=== PATIENT | female | born 1990 | race Caucasian/White ===

== ENCOUNTER 2016-06-11 04:55 | Outpatient (CLI) | payer BC ==
[~2016-06-11] VITALS: Ht 170.2 cm; Wt 77.2 kg
[2016-06-11 05:14] VITALS: BP 127/86; PULSE 100; RESP 18; Ht 170.2 cm; Wt 77.2 kg
[2016-06-11] MEDS ORDERED: FOLI-49 PO (06:43)
[2016-06-11] MEDS ORDERED: FERR325T5 PO (06:43)
[2016-06-11] MEDS ORDERED: PREN1TAB79 PO (06:43)
[2016-06-11 06:59] LABS: ADD SCAN DIFF NO
[2016-06-11 07:11] LABS: BASOPHIL # 0.1 10^3/ul (0.0-0.1); BASOPHILS % 0.5 % (0.0-2.0); EOSINOPHILS # 0.3 10^3/ul (0.0-0.5); EOSINOPHILS % 3.2 % (0.0-7.0); HEMATOCRIT 37.4 % (37.0-47.0); HEMOGLOBIN 12.6 g/dl (12.0-16.0); LYMPHOCYTES # 2.5 10^3/ul (0.8-2.9); MEAN CORPUSCULAR HEMOGLOBIN 31.9 pg (29.0-33.0); MEAN CORPUSCULAR HGB CONC 33.7 g/dl (32.0-37.0); MEAN CORPUSCULAR VOLUME 94.7 fl (82.0-101.0); MEAN PLATELET VOLUME 9.9 fl (7.4-10.4); MONOCYTE # 0.7 10^3/ul (0.3-0.9); MONOCYTES % 7.2 % (0.0-11.0); NEUTROPHIL # 6.3 10^3/ul (1.6-7.5); NEUTROPHILS % 62.8 % (39.0-77.0); PLATELET COUNT 243 10^3/UL (140-415); RED BLOOD COUNT 3.95 10^6/ul (4.20-5.40); RED CELL DISTRIBUTION WIDTH 13.6 % (11.5-14.5)
--- NOTE | 2016-06-11 07:36 | RADRPT ---
PROCEDURE: US OB. CLINICAL INDICATION: Vaginal bleeding Twins. TECHNIQUE: Multiple sonographic images of the pelvis were obtained. Transabdominal imaging only w as performed. The images were reviewed on a PACS workstation. COMPARISON: No prior studies are available for comparison. FINDINGS: There is a twin intrauterine gestation. The cervix is closed with a length of 3.6 cm. Twin A: Cardiac activity is present with 156 beats per minute. position is cephalic. Twin B: Cardiac activity is present with 161 beats per minute. position is transverse with head to the maternal left. The placenta is posterior. IMPRESSION: 1. Twin live intrauterine gestation. 2. The cervix is closed with a length of 3.6 cm. RPTAT: HH .Tammy Becker MD, Date Time Electronically viewed and signed by .Tammy Becker MD, on 06/11/2016 07:35 .G/
[2016-06-11 08:01] LABS: ADD UMIC YES; UR BILIRUBIN (Dip) NEGATIVE (NEGATIVE); UR BLOOD (Dip) 3+ (NEGATIVE); UR CLARITY CLEAR (CLEAR); UR COLOR LT. YELLOW (YELLOW); UR GLUCOSE (Dip) NEGATIVE (NEGATIVE); UR KETONES (Dip) NEGATIVE (NEGATIVE); UR LEUKOCYTE ESTERASE (Dip) NEGATIVE (NEGATIVE); UR NITRITE (Dip) NEGATIVE (NEGATIVE); UR TOTAL PROTEIN (Dip) NEGATIVE (NEGATIVE); UR UROBILINOGEN (Dip) 0.2 E.U./dL (0.1-1.0)
[2016-06-11 08:23] LABS: UR BACTERIA RARE; URINE RBCS 0-2 /HPF (0)
--- NOTE | 2016-06-11 09:12 | PN ---
Date/Time of Note Date/Time of Note DATE: 06/11/16 TIME: 09:08 OB Subjective Subjective Subjective Patient is 1 para 0 twin gestation at 26.2 weeks of gestation She presents with an episode of vaginal bleeding which is light red in color She reports she had intercourse 3 days ago She has no complaints of contractions or leaking fluid She reports positive movement She reports no issues or concerns during this care OB Objective Objective Objective Cervical length 3.6 cm OB ultrasound indicating placenta is posterior HEENT: WNL Heart: Rhythm Normal Lungs: Clear Abdomen: WNL Extremities: Normal Cervical Dilatation: None Membranes: Intact Accelerations: Accelerations Present Decelerations: No Decelerations Varibility: Moderate Contractions on Admission: None OB Assessment/Plan Other Assessment: Twin gestation at 26+2 weeks of gestation NST reactive [place] none Other plan: Patient was counseled regarding her OB ultrasound results She was further counseled to follow-up with her OB doctor in 1-2 days She should return to labor and delivery if vaginal bleeding persist or if she has contractions or leaking fluid or no movement LAINA RIVERA MD Jun 11, 2016 09:12
== END 2016-06-11 09:15 | disposition home or self-care (01) ==
LOC: L-D 04:55 → OBT 04:55
PROVIDERS: ATTEND Obstetrics & Gynecology
DX: O46.8X2 Other antepartum hemorrhage, second trimester (principal); Z3A.26 26 weeks gestation of pregnancy
CPT/HCPCS: 76817; 81001; 85025; 86850; 86900; 86901; Z7500; 81003; G0463

== ENCOUNTER 2016-08-06 11:51 | Inpatient (IN) | payer BC ==
[~2016-08-06] VITALS: Ht 170.2 cm; Wt 83.5 kg
[~2016-08-06 11:51] MED LIST: FERR325T5 PO; FOLI-49 PO; PREN1TAB79 PO
[2016-08-06 12:14] VITALS: Ht 170.2 cm; Wt 83.5 kg
--- NOTE | 2016-08-06 13:45 | TRIAGE ---
OB Triage Datetime Report Generated by CPN: 08/06/2016 13:45 Datetime: 08/06/2016 13:37 Vaginal Exam Dilatation (cms): 2.0 Effacement (%): 90 Station: -1 Datetime: 08/06/2016 12:18 Stage of : OB Triage Assessment Type: Triage Maternal Assessment Level of Consciousness: Fully Conscious DTR's/Clonus: DTRs 2+; No Clonus Headache: Denies Blurred Vision: No Respiratory Effort: Unlabored; Regular Rhythm; Equal Expansion Breath Sounds, Left: Clear and Equal Breath Sounds, Right: Clear and Equal Nausea/Vomiting: Denies RUQ Epigastric Pain: Denies Lower Extremities Edema: Bilateral Lower Extremities Degree: 1+ Upper Extremities Edema: None Degree: None Facial Edema: None Temperature Route: Oral Fall Risk Assessment History of Falling: (0) No Secondary Diagnosis: (0) No Ambulatory Aid: (0) Bedrest/Nurse Assist IV Therapy: (0) No Gait: (0) Normal/Bedrest/Immobile Mental Status: (0) Oriented to Own Ability Fall Score: 0 Fall Risk Score Definition: No Risk: No action required Labor Evaluation Frequency: 0 Monitor Mode: External Pain Presence: None/Denies Datetime: 08/06/2016 11:45 Time of Arrival: 08/06/2016 11:45 EGA: 34.2 Arrived By: Ambulatory Arrived From: Other Unit in Hospital Chief Complaint: UC'S Movement: Present Contractions: Occasional Rupture of Membranes: Denies Vaginal Bleeding: None Vaginal Discharge: Denies Recent Sexual Intercouse: Denies Abdominal Trauma: Not Applicable Patient Complaints: Contractions Time Provider Notified: 08/06/2016 13:40 Provider Notified: DELSHAD Initial Plan: IV HYDRATION AND VE Datetime: 06/11/2016 09:13 Vaginal Bleeding: None Vaginal Discharge: Denies Recent Sexual Intercouse: Denies Datetime: 06/11/2016 08:59 Stage of : OB Triage Datetime: 06/11/2016 08:43 Monitor Mode: External Resting Tone [place]: Relaxed Heart Rate FHR Baseline Rate: 145 Monitor Mode: External US Variability: Moderate 6-25 bpm Decelerations: None Category: Category I Pain Assessment Pain Scale: 0 Pain Presence: None/Denies Pain Type: N/A Pain Location: Abdomen Pain Goal: 3 Pain Relief Measures: Comfort Measures Datetime: 06/11/2016 08:29 Stage of : OB Triage Datetime: 06/11/2016 07:45 Labor Evaluation Frequency: 0 Monitor Mode: External Resting Tone [place]: Relaxed Heart Rate FHR Baseline Rate: 135 Monitor Mode: External US Variability: Moderate 6-25 bpm Decelerations: None Category: Category I Pain Assessment Pain Scale: 0 Pain Presence: None/Denies Pain Type: N/A Pain Goal: 3 Pain Relief Measures: Comfort Measures Datetime: 06/11/2016 07:09 Labor Evaluation Frequency: None Monitor Mode: External Pattern: Normal: <= 5 Contractions in 10 Minutes Resting Tone [place]: Relaxed Heart Rate FHR Baseline Rate: 140 Monitor Mode: External US Variability: Moderate 6-25 bpm Accelerations: 15X15 Decelerations: Variable Category: Category II Comments: Appropriate for gestational age. Datetime: 06/11/2016 06:36 Stage of : OB Triage Datetime: 06/11/2016 06:20 Labor Evaluation Frequency: x1 Monitor Mode: External Duration (sec)2399: 40 Pattern: Normal: <= 5 Contractions in 10 Minutes Resting Tone [place]: Relaxed Heart Rate FHR Baseline Rate: 145 Monitor Mode: External US Variability: Moderate 6-25 bpm Accelerations: 15X15 Decelerations: Variable Category: Category II Comments: Appropriate for gestational age. Pain Assessment Pain Scale: 0 Pain Presence: None/Denies Pain Type: N/A Pain Goal: 0 Pain Relief Measures: Comfort Measures Datetime: 06/11/2016 05:40 Stage of : OB Triage Datetime: 06/11/2016 05:35 Stage of : OB Triage Datetime: 06/11/2016 05:20 Stage of : OB Triage Assessment Type: Admission Assessment Maternal Assessment Level of Consciousness: Fully Conscious DTR's/Clonus: DTRs 2+; No Clonus Headache: Denies Blurred Vision: No Respiratory Effort: Unlabored; Regular Rhythm; Equal Expansion Breath Sounds, Left: Clear and Equal Breath Sounds, Right: Clear and Equal Nausea/Vomiting: Denies RUQ Epigastric Pain: Denies Lower Extremities Edema: None Degree: None Upper Extremities Edema: None Degree: None Facial Edema: None Temperature Route: Oral Fall Risk Assessment History of Falling: (0) No Secondary Diagnosis: (0) No Ambulatory Aid: (0) Bedrest/Nurse Assist IV Therapy: (0) No Gait: (0) Normal/Bedrest/Immobile Mental Status: (0) Oriented to Own Ability Fall Score: 0 Fall Risk Score Definition: No Risk: No action required Labor Evaluation Frequency: NONE Monitor Mode: External Heart Rate FHR Baseline Rate: 150 Monitor Mode: External US Variability: Moderate 6-25 bpm Accelerations: 10X10 Decelerations: Variable Category: Category II Comments: Appropriate for gestational age. Pain Assessment Pain Scale: 0 Pain Presence: None/Denies Pain Type: N/A Pain Goal: 0 Pain Relief Measures: Comfort Measures Datetime: 06/11/2016 05:17 EGA: 26.2 Datetime: 06/11/2016 05:16 Time of Arrival: 06/11/2016 04:50 Arrived By: Wheelchair Arrived From: Emergency Dept Chief Complaint: BLEEDING Movement: Present Contractions: Denies/Absent Rupture of Membranes: Denies Vaginal Bleeding: Scant Vaginal Discharge: Denies Recent Sexual Intercouse: Denies Abdominal Trauma: Not Applicable Patient Complaints: Other Time Provider Notified: 06/11/2016 05:40 Provider Notified: Delshad Initial Plan: CARMEN, NALINI, notify
[2016-08-06] MEDS ORDERED: LACTATED RINGER'S 1,000 ML IV SCH (13:49)
[2016-08-06] MEDS ORDERED: MISOPROSTOL 200 MCG TAB PR PRN ×2 (14:00→23:30)
[2016-08-06] MEDS ORDERED: OXYTOCIN 30 UNITS/LR 500 ML IV PRN ×2 (14:00→23:30)
[2016-08-06] MEDS ORDERED: OXYTOCIN 30 UNITS/LR 500 ML IV SCH (14:00)
[2016-08-06] MEDS ORDERED: CEFAZOLIN 2 GM/50 ML (PMX) 50 ML IV SCH (14:00)
[2016-08-06] MEDS ORDERED: CARBOPROST 250 MCG INJ IM PRN ×2 (14:00→23:30)
[2016-08-06] MEDS ORDERED: METHYLERGONOVINE 0.2 MG INJ IM PRN ×2 (14:00→23:30)
[2016-08-06 15:23] LABS: ADD SCAN DIFF NO
[2016-08-06 15:46] LABS: INR 0.98
[2016-08-06 15:47] LABS: PARTIAL THROMBOPLASTIN TIME 27.9 Sec (25.0-35.0)
[2016-08-06 15:48] VITALS: BP 122/77; PULSE 81; RESP 18
[2016-08-06 15:49] LABS: BASOPHILS % 0.3 % (0.0-2.0); EOSINOPHILS # 0.1 10^3/ul (0.0-0.5); EOSINOPHILS % 1.2 % (0.0-7.0); HEMATOCRIT 36.4 % (37.0-47.0); HEMOGLOBIN 12.2 g/dl (12.0-16.0); LYMPHOCYTES # 2.6 10^3/ul (0.8-2.9); LYMPHOCYTES % 25.9 % (15.0-51.0); MEAN CORPUSCULAR HEMOGLOBIN 30.5 pg (29.0-33.0); MEAN CORPUSCULAR HGB CONC 33.5 g/dl (32.0-37.0); MONOCYTE # 0.7 10^3/ul (0.3-0.9); NEUTROPHIL # 6.5 10^3/ul (1.6-7.5); NEUTROPHILS % 64.5 % (39.0-77.0); PLATELET COUNT 166 10^3/UL (140-415); RED CELL DISTRIBUTION WIDTH 13.6 % (11.5-14.5); WHITE BLOOD COUNT 10.1 10^3/ul (4.8-10.8)
[2016-08-06] MEDS ORDERED: LACTATED RINGER'S 1,000 ML IV ONE (17:00)
[2016-08-06] MEDS ORDERED: morphine SULFATE/PF (10 MG/10 ML) INJ ONE (18:50)
[2016-08-06] MEDS ORDERED: FENTAnyl 50 MCG/ML VIAL ONE (19:26)
[2016-08-06] MEDS ORDERED: OXYTOCIN 30 UNITS/LR 500 ML IV ONE (19:51)
[2016-08-06] MEDS ORDERED: PROPOFOL 20 ML ONE (19:51)
--- NOTE | 2016-08-06 19:53 | HP ---
DATE OF ADMISSION: 08/06/2016 HISTORY OF PRESENT ILLNESS: A 26-year-old female 1, para 0, estimated date of delivery 08/19 at 34 weeks and 2 days presented with labor contractions. course significant with m onochorionic diamniotic twins. ALLERGIES: NO KNOWN ALLERGIES. FAMILY HISTORY: Noncontributory. PHYSICAL EXAMINATION: VITAL SIGNS: The patient is afebrile. Vital signs stable. HEAD, NECK, AND CHEST: Within normal limits. ABDOMEN: Soft, nontender, and gravid. EXTREMITIES: Within normal limits. NEUROLOGIC: Within normal limits. PELVIC: On external monitoring, contractions are noted. On pelvic exam, cervix is 2 cm dilated. IMPRESSION: Intrauterine at 34 weeks and 2 days with monochorionic diamniotic twins, in l abor. PLAN: Delivery by primary section. Risks, benefits, and alternatives of the procedure wer e explained to the patient. The patient said she understood and gave informed consent for the proce dure. Dictated By: JENNIFER TRINIDAD/SAMMI Conf#: [id number] DID#: [id number]
[2016-08-06] MEDS ORDERED: KETOROLAC 30 MG INJ ONE (19:55)
--- NOTE | 2016-08-06 19:58 | NSTRPT ---
NST Information Datetime Report Generated by CPN: 08/06/2016 19:58 Datetime: 08/06/2016 09:30 NST Information EGA: 34.2 Test Number: 4 Time on Monitor: 08/06/2016 09:48 Time off Monitor: 08/06/2016 10:54 NST Duration (Min): 66 Reason for NST: Multiple Gestation; Other Reason for NST Other: Twins Test and Monitor Explained: Monitor Explained; Test Explained; Verbalized Understanding Pulse: 83 Resp: 17 SBP: 115 DBP: 73 Test Evaluation NST Interventions: Reposition Patient Patient States Movement: Present Contraction Frequency: Q3-12min FHR Baseline : 130 Variability: Moderate 6-25bpm Accelerations: 15X15 Decelerations: None FHR Category: Category I NST Results: Reactive Comments: To u/s: Twin A-MVP 5.3cm, cephalic left Twin B-MVP 4.6cm, cephalic right Dr. Ramirez called and informed of moderate contractions q3-12min. Orders received to send pt to OB Triage now for IV hydration LR 1000ml at 125mL/hr and SVE. POC explained to pt, pt verbalizes und erstanding. 1140-Pt to Triage, accomp by Mitzy u/s NST Baby B Patient States Movement: Present FHR Baseline: 135 Variability: Moderate 6-25bpm Accelerations: 15X15 Decelerations: None FHR Category: Category I NST Results: Reactive Electronically Signed By E-Signature: with User ID: [id number] Datetime: 08/03/2016 09:56 NST Information EGA: 33.6 NST Duration (Min): 37 Datetime: 07/31/2016 09:21 NST Information EGA: 33.3 NST Duration (Min): 28 Datetime: 07/23/2016 13:15 NST Information EGA: 32.2 NST Duration (Min): 42
[2016-08-06] MEDS ORDERED: MEPERIDINE 25 MG INJ IV PRN (20:30)
[2016-08-06] MEDS ORDERED: NALOXONE (0.4 MG/ML) INJ IV PRN (20:30)
[2016-08-06] MEDS ORDERED: METOCLOPRAMIDE 10 MG INJ IV PRN (20:30)
[2016-08-06] MEDS ORDERED: HYDROmorphONE (0.2 MG/ML) 10ML SYG IV PRN ×3 (20:30)
[2016-08-06] MEDS ORDERED: HYDROmorphONE 1 MG/ML SYG IV PRN ×2 (20:30)
[2016-08-06] MEDS ORDERED: ONDANSETRON 4 MG INJ IV PRN ×2 (20:30)
[2016-08-06] MEDS ORDERED: DIPHENHYDRAMINE 50 MG INJ IV PRN ×2 (20:30)
[2016-08-06] MEDS: KETOROLAC 30 MG INJ IV PRN (21:22)
--- NOTE | 2016-08-06 22:53 | OPR ---
DATE OF OPERATION: 08/06/2016 PREOPERATIVE DIAGNOSES: at 34 weeks and 2 days with twins in labor. POSTOPERATIVE DIAGNOSES: at 34 weeks and 2 days with twins in labor. OPERATION PERFORMED: Primary low transverse section. SURGEON: Jennifer Kurtz MD COTTAGE CHEESE MAKER: Veronica Han MD ANESTHESIA: Spinal. ANESTHESIOLOGIST: PROCEDURE: The patient was taken to the operating room and placed on the operating table. After successful spinal anesthesia was given, the patient was placed in supine position. The area was prepared and draped in the usual sterile fashion. Spinal anesthesia was tested and was satisfactory. Using a scalpel, Pfannenstiel incision was made about 2 fingerbreadths above the symphysis pubis. The incision was carried down to the fascia. The fascia was incised and extended bilaterally with Andrew scissors. Two Kochers were used to separate the fascia from the muscle. The muscle was dissected in midline down to peritoneum. The peritoneum was bluntly entered. Using a scalpel, a small transverse incision was made on the lower segment of uterus. Upon entering the uterine cavity, bandage scissors were inserted to extend the incision bilaterally, curved up. Twin A, baby girl, was delivered from cephalic presentation. After suctioning clear of amniotic fluid, the baby was handed off to the shook machine operator in attendance. Apgars were 8 and 9. Twin B, baby girl , was delivered from cephalic position. After suctioning clear of amniotic fluid, the baby was handed off to the team in attendance. Apgars were 8 and 9. The placenta was delivered without difficulty. The uterus was closed with #1 Monocryl continuous locked after assuring hemostasis. Both ovaries and tubes were inspected, all looked normal. The peritoneal cavity was irrigated with warm saline. The peritoneum was closed with 2-0 Vicryl continuous. The fascia was closed with #1 Vicryl continuous in 2 segments. Subcutaneous tissue was reapproximated with 2-0 plain. The skin was closed with gabby. ESTIMATED BLOOD LOSS: 700 mL. COMPLICATIONS: None. COUNTS: All counts were correct. Dictated By: JENNIFER KURTZ MD GD/NTS Conf#: [id number] DID#: [id number] [facility]
[2016-08-06] MEDS ORDERED: LANOLIN 7 GM TUBE TOP PRN (23:30)
[2016-08-06] MEDS ORDERED: OXYCODONE/ACETAMINOPHEN (5/325) TAB PO PRN ×2 (23:30)
[2016-08-06 23:50] VITALS: BP 130/79; PULSE 84; RESP 18
[2016-08-07] VITALS (35 sets, daily range): BP systolic 104–157; BP diastolic 68–98; PULSE 80–133; RESP 11–21
[2016-08-07] MEDS: OXYTOCIN 30 UNITS/LR 500 ML IV SCH ×2 (01:33→03:23)
[2016-08-07] MEDS: LACTATED RINGER'S 1,000 ML IV SCH ×5 (06:11→16:46)
[2016-08-07] MEDS: KETOROLAC 30 MG INJ IV PRN ×2 (06:11→13:04)
[2016-08-07 07:58] LABS: ADD SCAN DIFF NO
[2016-08-07 08:01] LABS: BASOPHIL # 0.1 10^3/ul (0.0-0.1); BASOPHILS % 0.5 % (0.0-2.0); EOSINOPHILS # 0.1 10^3/ul (0.0-0.5); EOSINOPHILS % 0.5 % (0.0-7.0); HEMATOCRIT 31.4 % (37.0-47.0); HEMOGLOBIN 10.2 g/dl (12.0-16.0); LYMPHOCYTES # 2.2 10^3/ul (0.8-2.9); LYMPHOCYTES % 19.7 % (15.0-51.0); MEAN CORPUSCULAR HEMOGLOBIN 29.9 pg (29.0-33.0); MEAN CORPUSCULAR HGB CONC 32.5 g/dl (32.0-37.0); MEAN CORPUSCULAR VOLUME 92.1 fl (82.0-101.0); MEAN PLATELET VOLUME 10.7 fl (7.4-10.4); MONOCYTE # 0.8 10^3/ul (0.3-0.9); MONOCYTES % 6.8 % (0.0-11.0); PLATELET COUNT 176 10^3/UL (140-415); RED BLOOD COUNT 3.41 10^6/ul (4.20-5.40); RED CELL DISTRIBUTION WIDTH 13.7 % (11.5-14.5); WHITE BLOOD COUNT 11.2 10^3/ul (4.8-10.8)
[2016-08-07] MEDS ORDERED: SENNA/DOCUSATE NA (8.6MG/50MG) TAB PO SCH (09:00)
[2016-08-07] MEDS: HYDROmorphONE 1 MG/ML SYG IV PRN ×2 (09:11→16:41)
[2016-08-07 15:08] LABS: ADD SCAN DIFF NO
[2016-08-07 16:20] LABS: BASOPHILS % 0.3 % (0.0-2.0); EOSINOPHILS % 0.2 % (0.0-7.0); HEMATOCRIT 23.7 % (37.0-47.0); HEMOGLOBIN 7.8 g/dl (12.0-16.0); LYMPHOCYTES # 2.4 10^3/ul (0.8-2.9); LYMPHOCYTES % 18.8 % (15.0-51.0); MEAN CORPUSCULAR HEMOGLOBIN 30.6 pg (29.0-33.0); MEAN CORPUSCULAR HGB CONC 32.9 g/dl (32.0-37.0); MEAN CORPUSCULAR VOLUME 92.9 fl (82.0-101.0); MEAN PLATELET VOLUME 11.2 fl (7.4-10.4); MONOCYTE # 0.7 10^3/ul (0.3-0.9); MONOCYTES % 5.2 % (0.0-11.0); NEUTROPHIL # 9.6 10^3/ul (1.6-7.5); PLATELET COUNT 198 10^3/UL (140-415); RED BLOOD COUNT 2.55 10^6/ul (4.20-5.40); RED CELL DISTRIBUTION WIDTH 13.8 % (11.5-14.5); WHITE BLOOD COUNT 12.8 10^3/ul (4.8-10.8)
[2016-08-07] MEDS ORDERED: ETOMIDATE 20 MG INJ ONE (17:36)
[2016-08-07] MEDS ORDERED: SUCCINYLCHOLINE CHLORIDE 100 MG/5 ML SYG IV ONE (17:36)
[2016-08-07] MEDS ORDERED: MIDAZOLAM 1 MG/ML 2 ML INJ ONE (17:37)
[2016-08-07] MEDS ORDERED: FENTAnyl 50 MCG/ML VIAL ONE (17:37)
[2016-08-07] MEDS ORDERED: PHENYLephrine (100 MCG/ML) 5ML SYG ONE (17:39)
[2016-08-07] MEDS ORDERED: ALBUMIN HUMAN 5% 250 ML IV PRN (18:00)
[2016-08-07] MEDS ORDERED: FENTAnyl 50 MCG/ML VIAL IV PRN (18:00)
[2016-08-07] MEDS ORDERED: EPHEDrine SULFATE 50 MG/5 ML SYG IV PRN (18:00)
[2016-08-07] MEDS ORDERED: HYDROmorphONE (0.2 MG/ML) 10ML SYG IV PRN ×2 (18:00)
[2016-08-07] MEDS ORDERED: OXYCODONE/ACETAMINOPHEN (5/325) TAB PO PRN ×2 (18:00→20:00)
[2016-08-07] MEDS ORDERED: PROCHLORPERAZINE 10 MG INJ IV PRN (18:00)
[2016-08-07] MEDS ORDERED: ONDANSETRON 4 MG INJ IV PRN (18:00)
[2016-08-07] MEDS ORDERED: MEPERIDINE 25 MG INJ IV PRN (18:00)
[2016-08-07] MEDS ORDERED: DIPHENHYDRAMINE 50 MG INJ IV PRN (18:00)
--- NOTE | 2016-08-07 18:02 | QN ---
Documentation Comment Patient was noted to have decreased urine output since 11:30 am and patient's abdomen was noted to be distended. IV bolus was given but urine output did not improve. Repeat CBC revealed Hgb down to 7.8. Patient's HR was noted to be increasing to 130's. Patient was counseled and informed consent obtained. RBC transfusion started. Will transfer to OR for exploratory laparotomy. JENNIFER KURTZ MD Aug 07, 2016 18:02
[2016-08-07] MEDS ORDERED: ROCURONIUM 50 MG INJ ONE (18:08)
[2016-08-07] MEDS ORDERED: METOCLOPRAMIDE 10 MG INJ ONE (18:11)
[2016-08-07] MEDS ORDERED: ONDANSETRON 4 MG INJ ONE (18:11)
[2016-08-07] MEDS ORDERED: FAMOTIDINE 20 MG INJ ONE (18:11)
[2016-08-07] MEDS ORDERED: DEXAMETHASONE 4 MG/ML 1 ML INJ ONE (18:11)
[2016-08-07] MEDS ORDERED: HYDROmorphONE 2 MG/ML SYG ONE (18:50)
[2016-08-07] MEDS ORDERED: CA CHLORIDE 10% 10 ML SYRINGE ONE (18:59)
[2016-08-07] MEDS ORDERED: THROMBIN 5000 UNIT VIAL ONE (19:09)
[2016-08-07] MEDS ORDERED: NEOSTIGMINE 3 MG/3 ML SYRINGE ONE (19:26)
[2016-08-07] MEDS ORDERED: GLYCOPYRROLATE 0.4 MG INJ ONE (19:26)
[2016-08-07] MEDS ORDERED: LACTATED RINGER'S 1,000 ML IV SCH (19:41)
[2016-08-07] MEDS ORDERED: MISOPROSTOL 200 MCG TAB PR PRN (20:00)
[2016-08-07] MEDS ORDERED: OXYTOCIN 30 UNITS/LR 500 ML IV PRN (20:00)
[2016-08-07] MEDS ORDERED: CARBOPROST 250 MCG INJ IM PRN (20:00)
[2016-08-07] MEDS ORDERED: METHYLERGONOVINE 0.2 MG INJ IM PRN (20:00)
[2016-08-07] MEDS ORDERED: LANOLIN 7 GM TUBE TOP PRN (20:00)
[2016-08-07 20:50] LABS: ADD SCAN DIFF NO
[2016-08-07 20:52] LABS: BASOPHILS % 0.2 % (0.0-2.0); EOSINOPHILS % 0.1 % (0.0-7.0); HEMATOCRIT 28.8 % (37.0-47.0); HEMOGLOBIN 9.8 g/dl (12.0-16.0); LYMPHOCYTES # 1.5 10^3/ul (0.8-2.9); LYMPHOCYTES % 12.5 % (15.0-51.0); MEAN CORPUSCULAR HEMOGLOBIN 31.3 pg (29.0-33.0); MEAN PLATELET VOLUME 10.4 fl (7.4-10.4); MONOCYTE # 0.6 10^3/ul (0.3-0.9); MONOCYTES % 4.9 % (0.0-11.0); NEUTROPHIL # 9.9 10^3/ul (1.6-7.5); NEUTROPHILS % 81.5 % (39.0-77.0); PLATELET COUNT 152 10^3/UL (140-415); RED BLOOD COUNT 3.13 10^6/ul (4.20-5.40); RED CELL DISTRIBUTION WIDTH 13.8 % (11.5-14.5); WHITE BLOOD COUNT 12.1 10^3/ul (4.8-10.8)
--- NOTE | 2016-08-07 20:59 | PN ---
Date/Time of Note Date/Time of Note DATE: 08/07/16 TIME: 20:56 Assessment/Plan VTE Prophylaxis VTE Prophylaxis Intervention: ambulation, anti-embolic stocking Lines/Catheters IV Catheter Type (from Nrsg): Peripheral IV Subjective 24 Hr Interval Summary Free Text/Dictation Anesthesia note: A 26 year female pod # 1 with spinal duramorph is doimg fine. pain is controlled , no n/v, itching, headache, back pain. back is clean. Exam/Review of Systems Vital Signs Vitals Vital Signs Date Time Temp Pulse Resp B/P Pulse Ox O2 Delivery O2 Flow Rate FiO2 08/07/16 20:21 100 17 144/95 97 Nasal Cannula 3.0 08/07/16 19:50 97.8 Intake and Output 08/06/16 08/06/16 08/07/16 15:00 23:00 07:00 Intake Total 1650 ml 850 ml Output Total 3000 ml 400 ml Balance -1350 ml 450 ml Results Result Diagram: 08/07/16 1440 Results 24 hrs Laboratory Tests Test 08/07/16 07:35 08/07/16 14:40 White Blood Count 11.2 H 12.8 H Red Blood Count 3.41 L 2.55 #L Hemoglobin 10.2 L 7.8 #L Hematocrit 31.4 L 23.7 #L Mean Corpuscular Volume 92.1 92.9 Mean Corpuscular Hemoglobin 29.9 30.6 Mean Corpuscular Hemoglobin Concent 32.5 32.9 Red Cell Distribution Width 13.7 13.8 Platelet Count 176 198 Mean Platelet Volume 10.7 H 11.2 H Neutrophils % 72.0 75.0 Lymphocytes % 19.7 18.8 Monocytes % 6.8 5.2 Eosinophils % 0.5 0.2 Basophils % 0.5 0.3 Nucleated Red Blood Cells % 0.0 0.0 Neutrophils # 8.0 H 9.6 H Lymphocytes # 2.2 2.4 Monocytes # 0.8 0.7 Eosinophils # 0.1 0.0 Basophils # 0.1 0.0 Nucleated Red Blood Cells # 0.0 0.0 Medications Medications Current Medications Lactated Ringer's 1,000 ml @ 125 mls/hr Q8H IV ; Start 08/07/16 at 19:41 Oxytocin/Lactated Ringer's 500 ml @ 125 mls/hr Q4H IV ; Start 08/07/16 at 19:41 ; Stop 08/08/16 at 03:40 Oxycodone/ Acetaminophen (Percocet (5/ 325)) 1 tab Q4H PRN PO PAIN LEVEL 4-6; Start 08/07/16 at 20:00 Oxycodone/ Acetaminophen (Percocet (5/ 325)) 2 tab Q4H PRN PO PAIN LEVEL 7-10; Start 08/07/16 at 20:00 Ibuprofen (Motrin) 800 mg Q8 PO ; Start 08/07/16 at 22:00 Simethicone (Mylicon) 160 mg Q8H PRN PO DISTENSION/GAS/BLOATING; Start at 20:00 Senna/Docusate Sodium (Senokot-S) 1 tab BID PO ; Start 08/07/16 at 21:00 Diphtheria/ Tetanus/Acell Pertussis 0.5 ml 0.5 ml ONCE ONCE IM* ; Start at 09:00; Stop 08/10/16 at 09:01 Oxytocin/Lactated Ringer's 500 ml @ 0 mls/hr ONCE PRN IV For Hemorrhage Management; Start 08/07/16 at 20:00 Methylergonovine Maleate (Methergine) 0.2 mg ONCE PRN IM VAGINAL BLEEDING; Start 08/07/16 at 20:00 Carboprost Tromethamine (Hemabate) 250 mcg ONCE PRN IM VAGINAL BLEEDING; Start 08/07/16 at 20:00 Misoprostol (Cytotec) 1,000 mcg ONCE PRN DC VAGINAL BLEEDING; Start 08/07/16 at 20:00 RAEGAN LEVY MD Aug 07, 2016 20:58
[2016-08-07] MEDS: SENNA/DOCUSATE NA (8.6MG/50MG) TAB PO SCH ×2 (21:00→23:40)
[2016-08-07 21:10] LABS: INR 0.92; PROTIME 12.4 Sec (12.2-14.2)
[2016-08-07 21:11] LABS: PARTIAL THROMBOPLASTIN TIME 26.9 Sec (25.0-35.0)
[2016-08-07 21:12] LABS: CALCIUM 8.4 mg/dl (8.4-10.2); CREATININE 0.73 mg/dl (0.44-1.00); MAGNESIUM 1.2 mg/dl (1.7-2.5); PHOSPHORUS 5.4 mg/dl (2.5-4.9); POTASSIUM 5.2 mmol/L (3.5-5.1)
[2016-08-07] MEDS: IBUPROFEN 800 MG TAB PO SCH ×2 (22:00→23:40)
[2016-08-08] VITALS (8 sets, daily range): BP systolic 119–147; BP diastolic 81–100; PULSE 97–123; RESP 18–24
[2016-08-08] MEDS: OXYTOCIN 30 UNITS/LR 500 ML IV SCH ×2 (01:07→10:59)
--- NOTE | 2016-08-08 03:34 | OPR ---
DATE OF OPERATION: 08/07/2016 PREOPERATIVE DIAGNOSIS: hemorrhage. POSTOPERATIVE DIAGNOSIS: hemorrhage. OPERATION PERFORMED: Exploratory laparotomy, dissection of the left ureter, ligation of left uterin e artery. SURGEON: Jennifer Ramirez MD OIL FIELD CASER AND INTRAOPERATIVE BOOKS BINDER: Dr. Brennan. ANESTHESIA: General. ANESTHESIOLOGIST: Dr. Natarajan DESCRIPTION OF PROCEDURE: The patient was taken to the operating room and placed on the operating t able in supine position. After adequate general anesthesia was given, the area was prepared and felipa ped in the usual sterile fashion. The gabby on the skin were removed from the patient's section. The sutures were cut, and the peritoneal cavity was entered. Upon entering the peritoneal cavity, there was blood and blood clots noted. About 1500 mL of blood and blood clots were evacuat ed from the peritoneal cavity. The uterine incision was examined, and there was some bleeding noted on the left aspect of the uterine incision. At this point, I asked Dr. Brennan to dissect the ure ter. The left ureter was dissected by Dr. Brennan. The left uterine artery was identified and was ligated by Dr. Brennan. Using 2-0 Monocryl, the uterine incision was reinforced in a running fash ion. The peritoneal cavity was irrigated with warm saline. Adequate hemostasis was assured. No fu rther bleeding was noted. The muscle was reapproximated with 2-0 Monocryl. The fascia was closed w ith #1 Vicryl continuous in 2 segments. Subcutaneous tissue was reapproximated with 2-0 chromic. T he skin was closed with gabby. Estimated blood loss about 1500 mL. All counts were correct. The portion of dissection of the left ureter and ligation of the left uterine artery will be dictated s eparately by Dr. Brennan. The patient tolerated the procedure well. The patient was awakened from anesthesia and transferred to recovery room in stable condition. Dictated By: JENNIFER TRINIDAD/SAMMI Conf#: [id number] DID#: [id number]
[2016-08-08] MEDS: OXYCODONE/ACETAMINOPHEN (5/325) TAB PO PRN ×2 (03:45→15:10)
[2016-08-08 07:41] LABS: ADD SCAN DIFF NO
[2016-08-08 07:53] LABS: BASOPHILS % 0.1 % (0.0-2.0); EOSINOPHILS % 0.3 % (0.0-7.0); HEMATOCRIT 24.2 % (37.0-47.0); HEMOGLOBIN 8.3 g/dl (12.0-16.0); LYMPHOCYTES # 2.1 10^3/ul (0.8-2.9); LYMPHOCYTES % 18.8 % (15.0-51.0); MEAN CORPUSCULAR HEMOGLOBIN 30.9 pg (29.0-33.0); MEAN CORPUSCULAR HGB CONC 34.3 g/dl (32.0-37.0); MEAN PLATELET VOLUME 10.9 fl (7.4-10.4); NEUTROPHILS % 71.2 % (39.0-77.0); PLATELET COUNT 151 10^3/UL (140-415); RED BLOOD COUNT 2.69 10^6/ul (4.20-5.40); RED CELL DISTRIBUTION WIDTH 14.5 % (11.5-14.5); WHITE BLOOD COUNT 11.2 10^3/ul (4.8-10.8)
[2016-08-08] MEDS: LACTATED RINGER'S 1,000 ML IV SCH ×2 (10:34→18:38)
[2016-08-08] MEDS: IBUPROFEN 800 MG TAB PO SCH ×2 (13:17→21:43)
[2016-08-08 17:53] LABS: ADD SCAN DIFF NO
[2016-08-08 17:55] LABS: BASOPHILS % 0.2 % (0.0-2.0); EOSINOPHILS % 0.3 % (0.0-7.0); HEMOGLOBIN 8.4 g/dl (12.0-16.0); LYMPHOCYTES # 1.1 10^3/ul (0.8-2.9); LYMPHOCYTES % 9.8 % (15.0-51.0); MEAN CORPUSCULAR VOLUME 88.6 fl (82.0-101.0); MEAN PLATELET VOLUME 9.5 fl (7.4-10.4); MONOCYTE # 0.6 10^3/ul (0.3-0.9); MONOCYTES % 5.2 % (0.0-11.0); NEUTROPHIL # 9.7 10^3/ul (1.6-7.5); NEUTROPHILS % 83.3 % (39.0-77.0); PLATELET COUNT 182 10^3/UL (140-415); RED BLOOD COUNT 2.71 10^6/ul (4.20-5.40); RED CELL DISTRIBUTION WIDTH 14.6 % (11.5-14.5); WHITE BLOOD COUNT 11.6 10^3/ul (4.8-10.8)
[2016-08-08 18:17] LABS: ALBUMIN 2.7 g/dl (3.3-4.9); BILIRUBIN,INDIRECT 0.4 mg/dl (0-1.1); BILIRUBIN,TOTAL 0.4 mg/dl (0.2-1.3); CALCIUM 8.1 mg/dl (8.4-10.2); CREATININE 0.63 mg/dl (0.44-1.00); POTASSIUM 3.5 mmol/L (3.5-5.1); TOTAL PROTEIN 5.4 g/dl (6.1-8.1); URIC ACID 5.7 mg/dl (3.1-7.9)
[2016-08-08 18:35] LABS: ADD UMIC NO; UR ASCORBIC ACID NEGATIVE (NEGATIVE); UR BILIRUBIN (Dip) NEGATIVE (NEGATIVE); UR BLOOD (Dip) NEGATIVE (NEGATIVE); UR CLARITY CLEAR (CLEAR); UR COLOR STRAW (YELLOW); UR GLUCOSE (Dip) NEGATIVE (NEGATIVE); UR KETONES (Dip) 1+ mg/dL (NEGATIVE); UR LEUKOCYTE ESTERASE (Dip) NEGATIVE Leu/ul (NEGATIVE); UR NITRITE (Dip) NEGATIVE (NEGATIVE); UR SPECIFIC GRAVITY (Dip) 1.008 (1.003-1.030); UR TOTAL PROTEIN (Dip) NEGATIVE (NEGATIVE); UR UROBILINOGEN (Dip) NEGATIVE (NEGATIVE)
--- NOTE | 2016-08-08 20:51 | QN ---
Documentation Comment Patient is recovering well. Patient has no complaint Afebrile VSS Abdomen soft +BS Hgb 8.3 Stable Ambulate Advance diet. JENNIFER KURTZ MD Aug 08, 2016 20:51
[2016-08-08] MEDS: SENNA/DOCUSATE NA (8.6MG/50MG) TAB PO SCH (21:43)
[2016-08-09 03:30] VITALS: BP 135/80; PULSE 97
[2016-08-09] MEDS: LACTATED RINGER'S 1,000 ML IV SCH (04:17)
[2016-08-09] MEDS: IBUPROFEN 800 MG TAB PO SCH ×3 (05:56→21:53)
[2016-08-09 07:54] LABS: ADD SCAN DIFF NO
[2016-08-09 08:11] LABS: BASOPHILS % 0.2 % (0.0-2.0); EOSINOPHILS # 0.2 10^3/ul (0.0-0.5); EOSINOPHILS % 1.9 % (0.0-7.0); HEMATOCRIT 21.9 % (37.0-47.0); HEMOGLOBIN 7.3 g/dl (12.0-16.0); LYMPHOCYTES # 1.9 10^3/ul (0.8-2.9); LYMPHOCYTES % 19.5 % (15.0-51.0); MEAN CORPUSCULAR HEMOGLOBIN 30.5 pg (29.0-33.0); MEAN CORPUSCULAR HGB CONC 33.3 g/dl (32.0-37.0); MEAN CORPUSCULAR VOLUME 91.6 fl (82.0-101.0); MEAN PLATELET VOLUME 10.5 fl (7.4-10.4); MONOCYTE # 0.8 10^3/ul (0.3-0.9); MONOCYTES % 8.4 % (0.0-11.0); NEUTROPHIL # 6.9 10^3/ul (1.6-7.5); NEUTROPHILS % 69.3 % (39.0-77.0); PLATELET COUNT 168 10^3/UL (140-415); RED BLOOD COUNT 2.39 10^6/ul (4.20-5.40); RED CELL DISTRIBUTION WIDTH 14.8 % (11.5-14.5)
[2016-08-09 08:39] VITALS: BP 121/82; PULSE 94; RESP 16
[2016-08-09] MEDS: SENNA/DOCUSATE NA (8.6MG/50MG) TAB PO SCH ×2 (09:00→21:00)
[2016-08-09] MEDS ORDERED: DIPHTH/TET/ACEL PERTUSS (ADULT) 0.5 ML VIAL IM* ONE (09:00)
[2016-08-09 12:05] VITALS: BP 132/85; PULSE 102; RESP 20
[2016-08-09] MEDS: MULTIVIT/MIN/FOLATE/IRON/PREN TAB PO SCH (12:10)
[2016-08-09] MEDS: FOLIC ACID 1 MG TAB PO SCH (12:10)
[2016-08-09] MEDS: FERROUS SULFATE (EC) 325 MG TAB PO SCH ×2 (13:26→20:27)
[2016-08-09 16:51] VITALS: BP 118/87; PULSE 94; RESP 18
--- NOTE | 2016-08-09 19:37 | QN ---
Documentation Comment Patient is doing well, ambulating without difficulty. Afebrile VSS Abdomen soft ND Incision clean and dry Hgb 7.3 Stable Advance diet Fe supplement. JENNIFER KURTZ MD Aug 09, 2016 19:37
[2016-08-09 20:00] VITALS: BP 135/90; PULSE 91; RESP 20
[2016-08-10 05:00] VITALS: BP 140/89; PULSE 70; RESP 16
[2016-08-10] MEDS: IBUPROFEN 800 MG TAB PO SCH ×3 (05:58→22:19)
[2016-08-10 08:00] VITALS: BP 115/56; PULSE 70; RESP 18
[2016-08-10] MEDS: SENNA/DOCUSATE NA (8.6MG/50MG) TAB PO SCH ×2 (08:24→20:40)
[2016-08-10] MEDS ORDERED: DIPHTH/TET/ACEL PERTUSS (ADULT) 0.5 ML VIAL IM* ONE (09:00)
[2016-08-10] MEDS: FOLIC ACID 1 MG TAB PO SCH (09:22)
[2016-08-10] MEDS: MULTIVIT/MIN/FOLATE/IRON/PREN TAB PO SCH (09:22)
[2016-08-10] MEDS: FERROUS SULFATE (EC) 325 MG TAB PO SCH ×3 (09:22→20:40)
[2016-08-10 16:00] VITALS: BP 112/66; PULSE 86; RESP 16
[2016-08-10 19:30] VITALS: BP 133/85; PULSE 94; RESP 18
--- NOTE | 2016-08-10 21:29 | QN ---
Documentation Comment No complaint Afebrile VSS abdomen soft POD #4 Stable Continue with present care. JENNIFER KURTZ MD Aug 10, 2016 21:29
[2016-08-11 04:00] VITALS: BP 113/74; PULSE 82; RESP 18
[2016-08-11] MEDS: IBUPROFEN 800 MG TAB PO SCH ×2 (05:44→13:36)
[2016-08-11 08:00] VITALS: BP 115/80; PULSE 73; RESP 17
[2016-08-11] MEDS: FOLIC ACID 1 MG TAB PO SCH (08:56)
[2016-08-11] MEDS: MULTIVIT/MIN/FOLATE/IRON/PREN TAB PO SCH (08:57)
[2016-08-11] MEDS: FERROUS SULFATE (EC) 325 MG TAB PO SCH ×2 (08:57→12:55)
[2016-08-11] MEDS: SENNA/DOCUSATE NA (8.6MG/50MG) TAB PO SCH (09:00)
--- NOTE | 2016-08-11 15:48 | DS ---
DATE OF ADMISSION: 08/06/2016 DATE OF DISCHARGE: 08/11/2016 ADMITTING DIAGNOSIS: at 34 weeks and 2 days with twins, in labor. HISTORY: A 26-year-old female 1, para 0 at time of admission, para 0-1-0-2 at the time of d ischarge at 34 weeks and 2 days, presented with labor contractions. course significant fo r monochorionic diamniotic twins. On 08/06/2016, after obtaining informed consent, the patient und erwent a primary low transverse section. Patient's operation was uncomplicated. On postop erative day #1, the patient was noted to have abdominal distention and the patient's hemoglobin was noted to be decreasing and the patient's urine output was decreasing. After obtaining informed cons ent on 08/07/2016, The patient underwent exploratory laparotomy, which revealed there was bleeding from the left side of uterine incision. The patient had dissection of the left ureter and ligation of the left uterine artery. Postoperatively, the patient improved. The patient received a blood tr ansfusion prior to operation and also during the operation. After exploratory laparotomy, the keisha ent's condition improved. The patient's hemoglobin and hematocrit were stable. The patient's vital signs were stable. The rest of the patient's postoperative course was uneventful. The patient is discharged on 08/11/2016 after having had adequate bladder and bowel function. CONDITION ON DISCHARGE: Stable. DISCHARGE INSTRUCTIONS: DIET: Regular. ACTIVITIES: Pelvic rest and no strenuous activities. MEDICATIONS: 1. Motrin as needed for pain. 2. Continue with vitamins, ferrous sulfate and folic acid. Follow up in the office in 5 days. FINAL DIAGNOSES: 1. , delivered by section. 2. Monochorionic diamniotic twins. 3. labor. 4. hemorrhage. 5. Anemia associated with acute blood loss. 6. Mother with twin liveborns. Dictated By: JENNIFER TRINIDAD/SAMMI Conf#: [id number] DID#: [id number]
[2016-08-11] MEDS ORDERED: DIPHTH/TET/ACEL PERTUSS (ADULT) 0.5 ML VIAL IM* ONE (18:00)
== END 2016-08-11 18:30 | disposition home or self-care (01) | DRG 765 ==
LOC: OBT 11:51 → L-D 11:51 → OBT 14:32 → L-D 14:36 → PP1 23:16
PROVIDERS: ADMIT Obstetrics & Gynecology; ATTEND Obstetrics & Gynecology
PROC: 10D00Z1 Extraction of Products of Conception, Low, Open Approach (ICD-10-PCS; principal; 2016-08-06 18:30)
PROC: 0W3J0ZZ Control Bleeding in Pelvic Cavity, Open Approach (ICD-10-PCS; 2016-08-07)
PROC: 30233N1 Transfusion of Nonautologous Red Blood Cells into Peripheral Vein, Percutaneous Approach (ICD-10-PCS; 2016-08-07)
PROC: 30233K1 Transfusion of Nonautologous Frozen Plasma into Peripheral Vein, Percutaneous Approach (ICD-10-PCS; 2016-08-07)
DX: O60.14X1 Preterm labor third trimester with preterm delivery third trimester, fetus 1 (principal); N99.821 Postprocedural hemorrhage of a genitourinary system organ or structure following other procedure; D62 Acute posthemorrhagic anemia; O30.033 Twin pregnancy, monochorionic/diamniotic, third trimester; Z37.2 Twins, both liveborn; O90.81 Anemia of the puerperium; O60.14X2 Preterm labor third trimester with preterm delivery third trimester, fetus 2; Z3A.34 34 weeks gestation of pregnancy; Y83.8 Other surgical procedures as the cause of abnormal reaction of the patient, or of later complication, without mention of misadventure at the time of the procedure; Y92.234 Operating room of hospital as the place of occurrence of the external cause
CPT/HCPCS: 36430; 80048; 80053; 81003; 83735; 84100; 84560; 85025; 85610; 85730; 86592; 86850; 86900; 86901; 86920; 87086; 87340; 88307; 90715; 99464; G0463; J0690; J1100; J1170; J1885; J2250; J2274; J2370; J2405; J2590; J2710; J2765; J3010; J7120; J7999; P9016; P9059